=== PATIENT | female | born 1960 | race Caucasian/White ===

== ENCOUNTER 2020-03-28 17:20 | Emergency (ER) | payer MEDICARE ==
[~2020-03-28] VITALS: Ht 163.8 cm; Wt 70.5 kg
[2020-03-28 17:38] VITALS: Ht 163.8 cm; Wt 70.5 kg
[2020-03-28 18:09] LABS: BASOPHILS 0.9 % (0-2); EOSINOPHILS 4.3 % (0-7); HEMATOCRIT 35.2 % (36.0-48.0); HEMOGLOBIN 11.8 g/dL (12-16); IMMATURE GRANULOCYTES 0.2 % (0-5); LYMPHOCYTES 39.5 % (15-50); MCH 29.7 pg (26.0-34.0); MCHC 33.5 g/dL (31.0-37.0); MCV 88.7 fL (80.0-100.0); MEAN PLATELET VOLUME 8.3 fL (7.4-10.4); MONOCYTES 7.8 % (2-11); NEUTROPHILS 47.3 % (40-80); RBC 3.97 10x6/uL (4.00-5.40); RDW 13.5 % (11.5-14.5); WBC 9.9 10x3/uL (4.8-10.8)
[2020-03-28 18:10] LABS: PLATELET COUNT 216 10x3/uL (130-400)
[2020-03-28 18:12] LABS: NITRITE NEGATIVE (NEGATIVE)
[2020-03-28 18:13] LABS: BILIRUBIN NEGATIVE (NEGATIVE); KETONE NEGATIVE (NEGATIVE); UROBILINOGEN NORMAL mg/dL (< 2)
[2020-03-28 18:21] LABS: UDS - AMPHET NEGATIVE QUAL (NEGATIVE); UDS - BARB NEGATIVE QUAL (NEGATIVE); UDS - BENZO NEGATIVE QUAL (NEGATIVE); UDS - COCAINE NEGATIVE QUAL (NEGATIVE); UDS - OPIATE NEGATIVE QUAL (NEGATIVE); UDS - PCP NEGATIVE QUAL (NEGATIVE); UDS - THC NEGATIVE QUAL (NEGATIVE)
[2020-03-28 18:21] LABS: ANION GAP 14.1 mmol/L (8-16); CALCIUM 9.1 mg/dL (8.5-10.1); CARBON DIOXIDE 23.9 mmol/L (21.0-32.0); CREATININE - SERUM 1.4 mg/dL (0.6-1.3)
[2020-03-28 18:28] LABS: ALBUMIN 3.9 g/dL (3.4-5.0); BILIRUBIN - TOTAL 0.26 mg/dL (0.2-1.3); MAGNESIUM - SERUM 2.1 mg/dL (1.8-2.4); PROTEIN - SERUM 7.6 g/dL (6.4-8.2)
[2020-03-28] MEDS ORDERED: NEURONTIN600 MG PO (20:31)
[2020-03-28] MEDS ORDERED: ATARAX 25 MG TA25 MG PO (20:32)
[2020-03-28] MEDS ORDERED: ANORO ELLIPTA1 EACH INH (20:33)
[2020-03-28] MEDS ORDERED: MOBIC7.5 MG PO (20:33)
[2020-03-28] MEDS ORDERED: BENZTROPINE MESY2 MG PO (20:34)
[2020-03-28] MEDS ORDERED: ABILIFY10 MG PO (20:34)
[2020-03-28] MEDS ORDERED: LIPITOR20 MG PO ×2 (20:35)
[2020-03-28] MEDS ORDERED: NORVASC5 MG PO (20:36)
[2020-03-28] MEDS ORDERED: PAXIL30 MG PO (20:36)
[2020-03-28 22:10] VITALS: BP 132/84
== END 2020-03-28 22:10 ==
LOC: D.ER 17:20
PROVIDERS: Family Medicine
DX: Z91.14 Patient's other noncompliance with medication regimen (principal); R46.89 Other symptoms and signs involving appearance and behavior; R45.1 Restlessness and agitation; F22 Delusional disorders; J44.9 Chronic obstructive pulmonary disease, unspecified; Z72.0 Tobacco use